=== PATIENT | male | born 1955 | race Caucasian/White ===

== ENCOUNTER 2020-01-02 20:09 | Emergency (ER) | payer OTHER ==
[2020-01-02] MEDS ORDERED: ASPIRIN 325 MG TABLET ONE (20:15)
[2020-01-02 20:59] LABS: BASOPHILS % (AUTO) 0.8 % (0.0-5.0); EOSINOPHILS % (AUTO) 4.3 % (0.0-8.0); HEMATOCRIT 49.7 % (42-54); LYMPHOCYTES % (AUTO) 27.5 % (21.0-51.0); MEAN CORPUSCULAR HEMOGLOBIN 28.8 pg (27.0-33.0); MEAN CORPUSCULAR HGB CONC 32.6 g/dL (32.0-36.0); MEAN CORPUSCULAR VOLUME 88.3 fL (79-99); MONOCYTES % (AUTO) 5.2 % (3.0-13.0); NEUTROPHILS % (AUTO) 61.9 % (40.0-77.0); PLATELET COUNT (AUTO) 192 K/uL (130-400); RED BLOOD CELL COUNT(AUTO) 5.63 MIL/uL (4.50-6.20); RED CELL DISTRIBUTION WIDTH 13.5 % (11.0-15.5); WHITE BLOOD COUNT (AUTO) 8.8 K/uL (4.8-10.8)
[2020-01-02 21:15] LABS: POTASSIUM 4.5 mmol/L (3.5-5.1)
[2020-01-02 21:17] LABS: INR 0.97 (0.85-1.15); PARTIAL THROMBOPLASTIN TIME 27.3 SEC (26.3-35.5); PROTHROMBIN TIME 10.2 SEC (9.6-11.6)
[2020-01-02 21:20] LABS: ALBUMIN 3.7 g/dL (3.5-5.0); BILIRUBIN,TOTAL 0.4 mg/dL (0.2-1.0); TOTAL PROTEIN, SERUM 7.8 g/dL (6.0-8.3)
[2020-01-02 21:29] LABS: B-TYPE NATRIURETIC PEPTIDE 23 pg/mL (0-100)
[2020-01-02] MEDS ORDERED: AZITHROMYCIN 500MG+NS 250ML 250 ML IV ONE (21:43)
[2020-01-02] MEDS ORDERED: IPRATROPIUM/ALBUTEROL SULFATE 3 ML SOLUTION IH ONE (21:45)
[2020-01-02 21:51] LABS: APPEARANCE,URINE Cloudy (CLEAR); BILIRUBIN,URINE Negative (NEGATIVE); COLOR,URINE Dark Yellow (YELLOW); GLUCOSE, URINE (UA) Negative (NEGATIVE); KETONES,URINE Trace mg/dL (NEGATIVE); LEUKOCYTE ESTERASE ,URINE Small (NEGATIVE); NITRATE,URINE Negative (NEGATIVE); OCCULT BLOOD,URINE Negative (NEGATIVE); PROTEIN,URINE Negative (NEGATIVE)
[2020-01-02 22:00] LABS: AMPHET/METH SCREEN,URINE NEGATIVE (NEGATIVE); BARBITURATE SCREEN, URINE NEGATIVE (NEGATIVE); BENZODIAZEPINES SCREEN,URINE NEGATIVE (NEGATIVE); CANNABINOID SCREEN,URINE NEGATIVE (NEGATIVE); COCAINE SCREEN,URINE NEGATIVE (NEGATIVE); OPIATE SCREEN,URINE NEGATIVE (NEGATIVE); PHENCYCLIDINE SCREEN,URINE NEGATIVE (NEGATIVE)
[2020-01-02 22:10] LABS: BACTERIA,URINE Few /HPF (None Seen); HYALINE CASTS, URINE 0-1 /LPF (0-1 /LPF); MUCUS,URINE Moderate LPF (None Seen)
== END 2020-01-03 00:02 | disposition home or self-care (01) ==
LOC: EDH 20:09
DX: J18.9 Pneumonia, unspecified organism (principal); K43.9 Ventral hernia without obstruction or gangrene; Z90.49 Acquired absence of other specified parts of digestive tract; Z72.0 Tobacco use
CPT/HCPCS: 36415; 71045; 80053; 80305; 81001; 82550; 83605; 83880; 84484; 85025; 85610; 85730; 87040; 87804 ×2; 93005; 94640; 96365; 96366; 99285; J0456

== ENCOUNTER 2020-01-16 00:10 | Inpatient (IN) | payer SELFPAY ==
[~2020-01-16] VITALS: Ht 182.9 cm; Wt 122.5 kg
[2020-01-16] MEDS ORDERED: ONDANSETRON HCL 4 MG/2 ML VIAL ONE (01:02)
[2020-01-16] MEDS ORDERED: SODIUM CHLORIDE 0.9% 500ML 500 ML IV ONE (01:03)
[2020-01-16] MEDS ORDERED: MORPHINE SULFATE 4 MG/1ML SYG ONE (01:03)
[2020-01-16 01:07] LABS: BASOPHILS % (AUTO) 0.4 % (0.0-5.0); HEMATOCRIT 53.7 % (42-54); LYMPHOCYTES % (AUTO) 9.1 % (21.0-51.0); MEAN CORPUSCULAR HEMOGLOBIN 29.4 pg (27.0-33.0); MEAN CORPUSCULAR HGB CONC 33.5 g/dL (32.0-36.0); MEAN CORPUSCULAR VOLUME 87.7 fL (79-99); MONOCYTES % (AUTO) 3.6 % (3.0-13.0); NEUTROPHILS % (AUTO) 84.4 % (40.0-77.0); PLATELET COUNT (AUTO) 208 K/uL (130-400); RED BLOOD CELL COUNT(AUTO) 6.12 MIL/uL (4.50-6.20); RED CELL DISTRIBUTION WIDTH 13.5 % (11.0-15.5); WHITE BLOOD COUNT (AUTO) 12.4 K/uL (4.8-10.8)
[2020-01-16 01:17] LABS: CREATININE 1.1 mg/dL (0.5-1.5); POTASSIUM 4.1 mmol/L (3.5-5.1)
[2020-01-16 01:20] LABS: INR 0.92 (0.85-1.15); PARTIAL THROMBOPLASTIN TIME 27.3 SEC (26.3-35.5)
[2020-01-16 01:21] LABS: BILIRUBIN,DIRECT 0.1 mg/dL (0.0-0.3); BILIRUBIN,TOTAL 0.5 mg/dL (0.2-1.0); TOTAL PROTEIN, SERUM 8.4 g/dL (6.0-8.3)
[2020-01-16] MEDS: SODIUM CHLORIDE 0.9% 1000ML 1,000 ML IV SCH ×2 (02:36→11:29)
[2020-01-16] MEDS ORDERED: ACETAMINOPHEN 325 MG TAB PO PRN ×2 (02:45)
[2020-01-16] MEDS ORDERED: ONDANSETRON HCL 4 MG/2 ML VIAL IV PRN (02:45)
[2020-01-16] MEDS ORDERED: DiphenhydrAMINE HCL 50 MG/ML VIAL IV PRN (02:45)
[2020-01-16] MEDS ORDERED: NITROGLYCERIN 0.4 MG SL TAB SL PRN (02:45)
[2020-01-16 03:45] VITALS: BP 140/82
--- NOTE | 2020-01-16 04:15 | NUR ---
CALLED [facility]
[2020-01-16] MEDS ORDERED: IPRATROPIUM/ALBUTEROL SULFATE 3 ML SOLUTION IH PRN (05:00)
[2020-01-16] MEDS: MORPHINE SULFATE 2 MG/ML 1ML SYG IVP PRN ×4 (06:16→21:18)
[2020-01-16 06:54] LABS: HEMATOCRIT 49.4 % (42-54); MEAN CORPUSCULAR HEMOGLOBIN 29.8 pg (27.0-33.0); MEAN CORPUSCULAR HGB CONC 33.6 g/dL (32.0-36.0); MEAN CORPUSCULAR VOLUME 88.7 fL (79-99); PLATELET COUNT (AUTO) 200 K/uL (130-400); RED BLOOD CELL COUNT(AUTO) 5.57 MIL/uL (4.50-6.20); RED CELL DISTRIBUTION WIDTH 13.6 % (11.0-15.5); WHITE BLOOD COUNT (AUTO) 9.3 K/uL (4.8-10.8)
[2020-01-16 07:15] LABS: ALBUMIN 3.5 g/dL (3.5-5.0); BILIRUBIN,TOTAL 0.4 mg/dL (0.2-1.0); MAGNESIUM 2.3 mg/dL (1.80-2.40); POTASSIUM 4.2 mmol/L (3.5-5.1); TOTAL PROTEIN, SERUM 7.4 g/dL (6.0-8.3)
[2020-01-16 07:41] VITALS: BP 105/75
[2020-01-16] MEDS: FAMOTIDINE/PF 20 MG/2 ML VIAL IV SCH ×2 (08:35→21:06)
[2020-01-16 08:37] LABS: EOSINOPHILS % (MANUAL) 1 % (1-6); LYMPHOCYTES % (MANUAL) 15 % (22-44); MAN.DIFF COMMENT-IMPRESSION MANUAL DIFFERENTIAL; MONOCYTES % (MANUAL) 5 % (2-9); PLATELET MORPHOLOGY COMMENT ADEQUATE; REACTIVE LYMPHOCYTES 2 % (0-0); SEGMENTED NEUTROPHILS % 77 % (40-70)
[2020-01-16 10:40] VITALS: BP 122/68
[2020-01-16] MEDS: DOXYCYCLINE 100MG+NS 250ML 250 ML IV SCH (13:01)
[2020-01-16] MEDS: ZOSYN 3.375GM+NS 50ML 50 ML IV SCH ×2 (14:23→21:06)
[2020-01-16] MEDS: SODIUM CHLORIDE 3% FOR INHALATION 4 ML/AMP VIAL.NEB IH ONE ×2 (14:30→14:45)
[2020-01-16 15:52] VITALS: BP 109/68
--- NOTE | 2020-01-16 16:21 | NUR ---
INITIAL Patient lives alone. He is traveling with the [facility]. No home services or DME. Patient is independent and drives. No local PCP. [facility]acy is [facility] in [place]. DCP is back to [facility]. Patient has no insurance or benefits. He is a [place] citizen and is presently employed. Patient was provided with community resources for post hospitalization follow up. Patient was also provided with Good RX card for prescriptions and educated on [facility] $4 medication program and [facility] $5 medication program. Patient is being assisted by [employer] for financial matters. Addendum: 01/16/20 at 1623 by COLLINS DEL TORO Amended: Links added.
[2020-01-16] MEDS: IPRATROPIUM/ALBUTEROL SULFATE 3 ML SOLUTION IH SCH ×2 (19:11→23:28)
[2020-01-16 20:00] VITALS: BP 116/55
[2020-01-17] VITALS: BP 114/71
[2020-01-17] MEDS: DOXYCYCLINE 100MG+NS 250ML 250 ML IV SCH ×2 (01:53→12:21)
[2020-01-17 04:00] VITALS: BP 109/66
[2020-01-17 04:30] LABS: EOSINOPHILS % (AUTO) 2.7 % (0.0-8.0); HEMATOCRIT 48.8 % (42-54); LYMPHOCYTES % (AUTO) 15.8 % (21.0-51.0); MEAN CORPUSCULAR HEMOGLOBIN 29.2 pg (27.0-33.0); MEAN CORPUSCULAR HGB CONC 32.8 g/dL (32.0-36.0); MEAN CORPUSCULAR VOLUME 89.1 fL (79-99); MONOCYTES % (AUTO) 7.6 % (3.0-13.0); NEUTROPHILS % (AUTO) 72.9 % (40.0-77.0); PLATELET COUNT (AUTO) 183 K/uL (130-400); RED BLOOD CELL COUNT(AUTO) 5.48 MIL/uL (4.50-6.20); RED CELL DISTRIBUTION WIDTH 13.8 % (11.0-15.5); WHITE BLOOD COUNT (AUTO) 4.1 K/uL (4.8-10.8)
[2020-01-17 04:40] LABS: CREATININE 1.1 mg/dL (0.5-1.5); POTASSIUM 3.7 mmol/L (3.5-5.1)
[2020-01-17] MEDS: MORPHINE SULFATE 2 MG/ML 1ML SYG IVP PRN ×2 (04:55→21:18)
[2020-01-17] MEDS: IPRATROPIUM/ALBUTEROL SULFATE 3 ML SOLUTION IH SCH ×4 (07:17→23:16)
[2020-01-17 08:00] VITALS: BP 116/66
--- NOTE | 2020-01-17 08:00 | NUR ---
AM SHIFT ASSESSMENT.
[2020-01-17] MEDS: ZOSYN 3.375GM+NS 50ML 50 ML IV SCH ×3 (09:46→21:18)
[2020-01-17] MEDS: FAMOTIDINE/PF 20 MG/2 ML VIAL IV SCH ×2 (09:46→21:18)
[2020-01-17 12:00] VITALS: BP 141/75
[2020-01-17 16:00] VITALS: BP 112/70
--- NOTE | 2020-01-17 18:00 | NUR ---
HAS NOT C/O OF PAIN, PENDING TO BE SEEN BY DR. JUSTICE, PER REPORT AND DR. FABIAN JUSTICE AWARE OF CONSULT.
[2020-01-17 19:00] VITALS: BP 101/63
[2020-01-18] VITALS (7 sets, daily range): BP systolic 95–121; BP diastolic 59–72
[2020-01-18] MEDS: DOXYCYCLINE 100MG+NS 250ML 250 ML IV SCH ×2 (00:15→13:16)
[2020-01-18] MEDS: IPRATROPIUM/ALBUTEROL SULFATE 3 ML SOLUTION IH SCH ×3 (06:40→17:12)
[2020-01-18] MEDS: ZOSYN 3.375GM+NS 50ML 50 ML IV SCH ×3 (07:39→21:33)
[2020-01-18] MEDS: FAMOTIDINE/PF 20 MG/2 ML VIAL IV SCH ×2 (13:16→21:34)
[2020-01-18] MEDS: MORPHINE SULFATE 2 MG/ML 1ML SYG IVP PRN ×2 (13:16→21:48)
--- NOTE | 2020-01-18 14:00 | NUR ---
NG CHECKED FOR PLACEMENT AND PLACEMENT VERIFIED.
--- NOTE | 2020-01-18 18:00 | NUR ---
ABD. A LITTLE SOFTER THAN YESTERDAY AND CONTINUES TO PUT OUT QUIET A BIT OF GASTRIC DARK SECRETIONS, HAS 2 LG PROTRUDING ABD HERNIAS.
[2020-01-18] MEDS: DEXTROSE 5%-LACTATED RINGERS 1,000 ML IV SCH ×2 (20:40→21:34)
[2020-01-19] MEDS: IPRATROPIUM/ALBUTEROL SULFATE 3 ML SOLUTION IH SCH ×5 (00:34→23:23)
[2020-01-19] MEDS: DOXYCYCLINE 100MG+NS 250ML 250 ML IV SCH ×3 (01:42→23:50)
[2020-01-19 03:39] VITALS: BP 100/49
[2020-01-19] MEDS: ZOSYN 3.375GM+NS 50ML 50 ML IV SCH ×3 (05:27→21:39)
[2020-01-19 06:43] LABS: BASOPHILS % (AUTO) 0.7 % (0.0-5.0); EOSINOPHILS % (AUTO) 4.4 % (0.0-8.0); HEMATOCRIT 43.7 % (42-54); LYMPHOCYTES % (AUTO) 26.5 % (21.0-51.0); MEAN CORPUSCULAR HEMOGLOBIN 28.8 pg (27.0-33.0); MEAN CORPUSCULAR HGB CONC 32.3 g/dL (32.0-36.0); MEAN CORPUSCULAR VOLUME 89.2 fL (79-99); MONOCYTES % (AUTO) 5.5 % (3.0-13.0); NEUTROPHILS % (AUTO) 62.6 % (40.0-77.0); PLATELET COUNT (AUTO) 187 K/uL (130-400); RED CELL DISTRIBUTION WIDTH 13.5 % (11.0-15.5); WHITE BLOOD COUNT (AUTO) 7.7 K/uL (4.8-10.8)
[2020-01-19 06:56] LABS: CREATININE 0.9 mg/dL (0.5-1.5); POTASSIUM 3.4 mmol/L (3.5-5.1)
[2020-01-19 07:24] VITALS: BP 114/66
[2020-01-19] MEDS: DEXTROSE 5%-LACTATED RINGERS 1,000 ML IV SCH ×2 (10:00→23:55)
[2020-01-19] MEDS: FAMOTIDINE/PF 20 MG/2 ML VIAL IV SCH ×2 (10:14→21:39)
[2020-01-19] MEDS ORDERED: BENZOCAINE/MENTH/CETYLPYRD CL 1 EACH LOZENGE MM PRN (10:15)
[2020-01-19] MEDS ORDERED: KETOROLAC TROMETHAMINE 30MG/ML IV PRN (10:45)
[2020-01-19 12:00] VITALS: BP 130/77
[2020-01-19] MEDS: BENZOCAINE/MENTH/CETYLPYRD CL 1 EACH LOZENGE MM PRN ×2 (12:25→22:11)
[2020-01-19 16:00] VITALS: BP 124/77
[2020-01-19 19:00] VITALS: BP 119/61
--- NOTE | 2020-01-19 20:00 | NUR ---
NGT Ngt attached to low intemittent wall suction.Placement verified via auscultation and aspiration.Cannister changed.
--- NOTE | 2020-01-19 20:00 | NUR ---
IV IV restarted to rt upper arm,bright well.
[2020-01-19] MEDS: MORPHINE SULFATE 2 MG/ML 1ML SYG IVP PRN (21:39)
--- NOTE | 2020-01-19 21:39 | NUR ---
MEDS Pt medicated with Morphine Iv for c/o pain.
[2020-01-19 23:00] VITALS: BP 119/62
[2020-01-20 03:00] VITALS: BP 98/68
[2020-01-20] MEDS: ZOSYN 3.375GM+NS 50ML 50 ML IV SCH ×3 (04:38→22:51)
--- NOTE | 2020-01-20 05:06 | NUR ---
NGT OUTPUT Pt had 100 ml yellow colored output from NGT.
[2020-01-20] MEDS: IPRATROPIUM/ALBUTEROL SULFATE 3 ML SOLUTION IH SCH ×3 (05:23→23:26)
[2020-01-20 06:40] LABS: MAGNESIUM 2.2 mg/dL (1.80-2.40)
--- NOTE | 2020-01-20 07:01 | NUR ---
CRITICAL LAB Paged education spec MD/manpower development specialist manager re K+ 3.0.Awaiting call back.
[2020-01-20 07:23] VITALS: BP 105/70
[2020-01-20] MEDS: FAMOTIDINE/PF 20 MG/2 ML VIAL IV SCH ×2 (10:54→22:51)
[2020-01-20 12:08] VITALS: BP 133/88
[2020-01-20] MEDS: DOXYCYCLINE 100MG+NS 250ML 250 ML IV SCH (12:17)
[2020-01-20] MEDS: PHENOL 177 ML BOTTLE PO PRN ×3 (12:17→23:17)
[2020-01-20] MEDS ORDERED: LIDOCAINE HCL-MPF 1% 2ML VIAL IJ PRN (12:30)
[2020-01-20] MEDS: DEXTROSE 5%-LACTATED RINGERS 1,000 ML IV SCH (12:36)
[2020-01-20] MEDS: MORPHINE SULFATE 2 MG/ML 1ML SYG IVP PRN (12:53)
[2020-01-20] MEDS: BENZOCAINE/MENTH/CETYLPYRD CL 1 EACH LOZENGE MM PRN ×2 (15:14→23:17)
[2020-01-20 16:00] VITALS: BP 130/79
[2020-01-20 20:00] VITALS: BP 119/75
--- NOTE | 2020-01-20 21:52 | NUR ---
NGT TUBE OUTPUT Note from day shift. Patient was evaluated by Physician's Mold Construction Supervisor Gavin García. At the time, on ly 200mL of light, green fluid had been drained from NGT. He ordered to clamp NGT and to do small bowel follow through. However, at the end of the shift, at 1859, patient had drained a total of 1200mL. Initially he was clamped and small bowel follow through ordered. However, I notified Dr. Muhammad of the total NGT output and he stated to reconnect to [facility] and that patient will be reevaluated tomorrow.
[2020-01-21] VITALS (7 sets, daily range): BP systolic 95–120; BP diastolic 55–76
[2020-01-21] MEDS ORDERED: DOXYCYCLINE 100MG+NS 250ML 250 ML IV ONE (01:27)
[2020-01-21] MEDS: DOXYCYCLINE 100MG+NS 250ML 250 ML IV SCH ×2 (01:30→14:59)
[2020-01-21] MEDS: MORPHINE SULFATE 2 MG/ML 1ML SYG IVP PRN (01:39)
[2020-01-21] MEDS: DEXTROSE 5%-LACTATED RINGERS 1,000 ML IV SCH ×2 (01:44→15:10)
[2020-01-21] MEDS: POTASSIUM CHLORIDE 20MEQ/100ML 100 ML IV PRN ×2 (01:55→18:40)
[2020-01-21] MEDS: IPRATROPIUM/ALBUTEROL SULFATE 3 ML SOLUTION IH SCH ×4 (07:01→23:03)
[2020-01-21 07:19] LABS: BASOPHILS % (AUTO) 0.6 % (0.0-5.0); EOSINOPHILS % (AUTO) 6.1 % (0.0-8.0); HEMATOCRIT 42.6 % (42-54); LYMPHOCYTES % (AUTO) 27.6 % (21.0-51.0); MEAN CORPUSCULAR HGB CONC 32.6 g/dL (32.0-36.0); MEAN CORPUSCULAR VOLUME 88.9 fL (79-99); MONOCYTES % (AUTO) 5.4 % (3.0-13.0); NEUTROPHILS % (AUTO) 59.9 % (40.0-77.0); PLATELET COUNT (AUTO) 196 K/uL (130-400); RED BLOOD CELL COUNT(AUTO) 4.79 MIL/uL (4.50-6.20); RED CELL DISTRIBUTION WIDTH 13.6 % (11.0-15.5); WHITE BLOOD COUNT (AUTO) 7.9 K/uL (4.8-10.8)
[2020-01-21 07:41] LABS: ALBUMIN 2.9 g/dL (3.5-5.0); BILIRUBIN,TOTAL 0.6 mg/dL (0.2-1.0); CREATININE 0.9 mg/dL (0.5-1.5); POTASSIUM 3.2 mmol/L (3.5-5.1); TOTAL PROTEIN, SERUM 6.7 g/dL (6.0-8.3)
[2020-01-21] MEDS: FAMOTIDINE/PF 20 MG/2 ML VIAL IV SCH ×2 (10:06→21:27)
[2020-01-21] MEDS: ZOSYN 3.375GM+NS 50ML 50 ML IV SCH ×3 (10:07→21:27)
[2020-01-21] MEDS: PHENOL 177 ML BOTTLE PO PRN (10:15)
[2020-01-21] MEDS: BENZOCAINE/MENTH/CETYLPYRD CL 1 EACH LOZENGE MM PRN ×2 (10:17→14:59)
--- NOTE | 2020-01-21 11:20 | NUR ---
RD NOTIFICATION DX SMALL BOWEL OBSTRUCTION. NPO X 6 DAYS. S/P SURGERY. NG TUBE IN PLACE. PLANNING REMOVAL OF NG TUBE AND START ON CLEAR LIQUIDS. NIURKA RECOMMENDS TO ADVANCE DIET TOLERATED WHEN MEDICALLY FEASIBLE. IF UNABLE TO ADVANCE DIET, RECOMMEND TO CONSIDER ALTERNATE MEANS OF NUTRITION. PLEASE CONTACT NIURKA AT [facility] AT 1905 WITH NUTRITIONAL UPDATES, THANK YOU. Addendum: 01/21/20 at [address] Amended: Links added.
--- NOTE | 2020-01-21 15:13 | NUR ---
CLEAR LIQUIDS Patient started on clear liquids. NGT was clamped. Output was zero since 0600 hrs.
--- NOTE | 2020-01-21 20:34 | NUR ---
DAY SHIFT NURSING NOTE Patient tolerated clear liquids well and is passing gas. No nausea, no emesis. NGT discontinued as ordered by Janie Ho
[2020-01-22] MEDS: DOXYCYCLINE 100MG+NS 250ML 250 ML IV SCH ×3 (02:07→23:19)
[2020-01-22 03:50] VITALS: BP 103/72
[2020-01-22 05:29] LABS: BASOPHILS % (AUTO) 0.8 % (0.0-5.0); EOSINOPHILS % (AUTO) 5.2 % (0.0-8.0); HEMATOCRIT 43.1 % (42-54); LYMPHOCYTES % (AUTO) 21.1 % (21.0-51.0); MEAN CORPUSCULAR HGB CONC 32.9 g/dL (32.0-36.0); MEAN CORPUSCULAR VOLUME 88.1 fL (79-99); MONOCYTES % (AUTO) 5.2 % (3.0-13.0); NEUTROPHILS % (AUTO) 67.2 % (40.0-77.0); PLATELET COUNT (AUTO) 198 K/uL (130-400); RED BLOOD CELL COUNT(AUTO) 4.89 MIL/uL (4.50-6.20); RED CELL DISTRIBUTION WIDTH 13.2 % (11.0-15.5); WHITE BLOOD COUNT (AUTO) 8.9 K/uL (4.8-10.8)
[2020-01-22 05:42] LABS: ALBUMIN 2.8 g/dL (3.5-5.0); BILIRUBIN,TOTAL 0.6 mg/dL (0.2-1.0); CREATININE 0.8 mg/dL (0.5-1.5); POTASSIUM 3.1 mmol/L (3.5-5.1); TOTAL PROTEIN, SERUM 6.6 g/dL (6.0-8.3)
[2020-01-22] MEDS ORDERED: POTASSIUM CHLORIDE 20 MEQ ERTAB PO ONE ×3 (06:02→18:29)
[2020-01-22] MEDS: ZOSYN 3.375GM+NS 50ML 50 ML IV SCH ×3 (06:24→19:37)
[2020-01-22] MEDS: IPRATROPIUM/ALBUTEROL SULFATE 3 ML SOLUTION IH SCH ×2 (07:05→10:57)
[2020-01-22 08:14] VITALS: BP 112/58
[2020-01-22] MEDS: FAMOTIDINE/PF 20 MG/2 ML VIAL IV SCH ×2 (10:05→19:38)
[2020-01-22 11:31] VITALS: BP 108/68
--- NOTE | 2020-01-22 15:23 | NUR ---
RD FOLLOW UP DIET: CLEAR LIQUIDS. PT CLAIMS HE IS TOLERATING CURRENT DIET. NO COMPLAINTS OF N/V//D AND HE IS ABLE TO PASS GAS. NO BOWEL MOVEMENT YET. RD RECOMMENDS TO ADVANCE DIET TOLERATED TO FULL LIQUIDS, LASTLY GI SOFT/BLAND. OFFER ENSURE NEEDED. Addendum: 01/22/20 at [address] Amended: Links added.
[2020-01-22 17:43] VITALS: BP 122/76
[2020-01-22 20:00] VITALS: BP 122/80
[2020-01-22] MEDS: DEXTROSE 5%-LACTATED RINGERS 1,000 ML IV SCH (23:20)
[2020-01-23] VITALS: BP 117/75
[2020-01-23 03:54] VITALS: BP 113/75
[2020-01-23 05:10] LABS: BASOPHILS % (AUTO) 0.7 % (0.0-5.0); EOSINOPHILS % (AUTO) 6.1 % (0.0-8.0); HEMATOCRIT 44.9 % (42-54); LYMPHOCYTES % (AUTO) 28.7 % (21.0-51.0); MEAN CORPUSCULAR HEMOGLOBIN 28.8 pg (27.0-33.0); MEAN CORPUSCULAR HGB CONC 32.7 g/dL (32.0-36.0); MEAN CORPUSCULAR VOLUME 87.9 fL (79-99); MONOCYTES % (AUTO) 5.9 % (3.0-13.0); NEUTROPHILS % (AUTO) 57.9 % (40.0-77.0); PLATELET COUNT (AUTO) 207 K/uL (130-400); RED BLOOD CELL COUNT(AUTO) 5.11 MIL/uL (4.50-6.20); RED CELL DISTRIBUTION WIDTH 13.4 % (11.0-15.5); WHITE BLOOD COUNT (AUTO) 7.5 K/uL (4.8-10.8)
[2020-01-23] MEDS: ZOSYN 3.375GM+NS 50ML 50 ML IV SCH (05:17)
[2020-01-23] MEDS: DEXTROSE 5%-LACTATED RINGERS 1,000 ML IV SCH (05:20)
[2020-01-23 05:37] LABS: ALBUMIN 2.8 g/dL (3.5-5.0); BILIRUBIN,TOTAL 0.5 mg/dL (0.2-1.0); CREATININE 0.8 mg/dL (0.5-1.5); POTASSIUM 3.7 mmol/L (3.5-5.1); TOTAL PROTEIN, SERUM 6.6 g/dL (6.0-8.3)
[2020-01-23 08:00] VITALS: BP 129/84
[2020-01-23] MEDS: FAMOTIDINE/PF 20 MG/2 ML VIAL IV SCH (09:46)
[2020-01-23 12:00] VITALS: BP 110/73
[2020-01-23] MEDS: DOXYCYCLINE 100MG+NS 250ML 250 ML IV SCH (12:54)
--- NOTE | 2020-01-23 15:10 | NUR ---
PATIENT DISCHARGE PATIENT DISCHARGE, IV DISCONTINUED, CATHLON INTACT, BLEEDING CONTROLLED, PATIENT TOLERATED WITHOUT INCIDENT. PROVIDED PATIENT WITH CONTACT INFORMATION FOR DR. JUSTICE AND ADVISED HIM TO CALL AND SCHEDULE APPOINTMENT 1-2 WEEKS FOR HERNIA REPAIR. PATIENT STATED HE HAD NO QUESTIONS AT THIS TIME, PATIENT WAITING ON GRANDDAUGHTER FOR RIDE. EXPECTED TO BE HERE ABOUT 1530 HOURS.
== END 2020-01-23 16:30 | disposition home or self-care (01) | DRG 394 ==
LOC: EDH 00:10 → EDHIP 00:11 → 3CH 02:57
PROVIDERS: ADMIT Internal Medicine; ATTEND Internal Medicine
PROC: 0D9670Z Drainage of Stomach with Drainage Device, Via Natural or Artificial Opening (ICD-10-PCS; principal; 2020-01-19)
DX: K43.6 Other and unspecified ventral hernia with obstruction, without gangrene (principal); J44.1 Chronic obstructive pulmonary disease with (acute) exacerbation; E66.9 Obesity, unspecified; Z68.36 Body mass index [BMI] 36.0-36.9, adult; Z85.841 Personal history of malignant neoplasm of brain; Z87.891 Personal history of nicotine dependence
CPT/HCPCS: 36415; 71045; 74021; 74176; 80048; 80053; 80076; 82550; 83605; 83690; 83735; 84484; 85025; 85610; 85730; 87071; 87205; 93005; 94640; 94664; G0378; J1885; J2270; J2405; J2543; J3480; J3490; J7040